=== PATIENT | female | born 1945 | race Caucasian/White ===

== ENCOUNTER 2017-02-17 10:20 | Day surgery (SDC) | payer MEDICARE, OTHER, MEDICAID ==
[2017-02-17] MEDS ORDERED: KETOROLAC 0.5% OPTH 60 DROP SOL ONE (10:26)
[2017-02-17] MEDS ORDERED: ACETAZOLAMIDE 500 MG CER ONE (10:26)
[2017-02-17] MEDS ORDERED: CYCLOPENTOLATE 1% SOL ONE (10:26)
[2017-02-17] MEDS ORDERED: PROPARACAINE HCL 0.5% OPHTHALMIC SOL ONE (10:26)
[2017-02-17] MEDS ORDERED: PHENYLEPHRINE HCL 10% OPHTHAL SOL ONE (10:26)
[2017-02-17] MEDS ORDERED: PHENYLEPHRINE HCL 10% OPHTHAL SOL RIGHTEYE ONE (10:52)
[2017-02-17] MEDS: PROPARACAINE HCL 0.5% OPHTHALMIC SOL RIGHTEYE ONE ×2 (10:52→11:34)
[2017-02-17] MEDS ORDERED: KETOROLAC 0.5% OPTH 60 DROP SOL RIGHTEYE ONE (10:52)
[2017-02-17] MEDS ORDERED: CYCLOPENTOLATE 1% SOL RIGHTEYE ONE (10:52)
[2017-02-17] MEDS ORDERED: MIDAZOLAM 2 MG/2 ML SOL ONE (11:11)
[2017-02-17] MEDS ORDERED: BSS 500 ML 500 ML IR ONE (11:27)
[2017-02-17] MEDS ORDERED: POVIDONE IODINE 5% SOL ONE (11:27)
[2017-02-17] MEDS ORDERED: LIDOCAINE HCL 1% MPF SOL ONE (11:27)
[2017-02-17] MEDS ORDERED: DEXTROSE 50% 1 VIAL SOL IV ONE ×2 (12:05→12:27)
[2017-02-17 13:12] VITALS: BP 132/69; PULSE 71; RESP 20; TEMP 97; O2SAT 95
== END 2017-02-17 13:25 | disposition home or self-care (01) | DRG 125 ==
LOC: SURG 10:20
PROVIDERS: ATTEND Ophthalmology
DX: H25.9 Unspecified age-related cataract (principal)
CPT/HCPCS: 82962; J2250; J2001

== ENCOUNTER 2017-05-25 12:26 | Emergency (ER) | payer MEDICARE, OTHER, MEDICAID ==
[2017-05-25] MEDS ORDERED: ALBUTEROL/IPRATROPIUM 1 VIAL SOL INH ONE (12:52)
[2017-05-25] MEDS ORDERED: ALBUTEROL/IPRATROPIUM 1 VIAL SOL ONE (12:54)
[2017-05-25 12:58] LABS: BASOPHILS % (AUTO) 1 % (0-3); EOSINOPHILS % (AUTO) 3 % (0-9); HEMATOCRIT 40 % (35-47); MEAN CORPUSCULAR HGB CONC 34.6 gm/dl (32.0-36.0); MEAN CORPUSCULAR VOLUME 87 fL (81-99); MONOCYTES % (AUTO) 10.7 % (0-12); NEUTROPHILS % (AUTO) 69.3 % (37-80)
[2017-05-25 13:07] LABS: CALCIUM 9.2 mg/dl (8.5-10.1); POTASSIUM 4.1 mMol/L (3.5-5.1)
[2017-05-25 13:43] VITALS: TEMP 100.4
[2017-05-25 14:38] VITALS: BP 155/91; PULSE 91; RESP 30; O2SAT 94
== END 2017-05-25 14:25 | disposition home or self-care (01) | DRG 192 ==
LOC: ED 12:26
DX: J44.1 Chronic obstructive pulmonary disease with (acute) exacerbation (principal); Z99.81 Dependence on supplemental oxygen
CPT/HCPCS: 71045; 80048; 83880; 85025; 87804; 93005; 99284; J7620; A9270-GY

== ENCOUNTER 2017-06-01 12:14 | Inpatient (IN) | payer MEDICARE, OTHER, MEDICAID ==
[2017-06-01 12:59] LABS: BASOPHILS % (AUTO) 1 % (0-3); EOSINOPHILS % (AUTO) 3 % (0-9); HEMATOCRIT 42 % (35-47); MEAN CORPUSCULAR HGB CONC 34.1 gm/dl (32.0-36.0); MEAN CORPUSCULAR VOLUME 89 fL (81-99); MONOCYTES % (AUTO) 7.4 % (0-12); NEUTROPHILS % (AUTO) 66.2 % (37-80)
[2017-06-01 13:15] LABS: ALBUMIN 2.9 gm/dl (3.4-5.0); ALT 27 IU/L (14-63); CALCIUM 9.4 mg/dl (8.5-10.1); GLOM FILT RATE 40 mL/min (>60); POTASSIUM 3.9 mMol/L (3.5-5.1); SODIUM 140 mMol/L (136-145)
[2017-06-01 13:50] LABS: HEMOGLOBIN A1C 7.8 % (4.8-6.0)
[2017-06-01 13:52] LABS: APPEARANCE,URINE Clear; BILIRUBIN,URINE NEGATIVE (NEGATIVE); COLOR,URINE Yellow; GLUCOSE, URINE (UA) NEGATIVE (NEGATIVE); KETONES,URINE NEGATIVE (NEGATIVE); LEUKOCYTE ESTERASE ,URINE NEGATIVE (NEGATIVE); NITRATE,URINE NEGATIVE (NEGATIVE); OCCULT BLOOD,URINE NEGATIVE (NEG-TRACE)
[2017-06-01 13:57] LABS: RBC,URINE 0-2 (0-3AV/HPF)
[2017-06-01] MEDS ORDERED: ALBUTEROL NEB SOL 2.5MG/3ML 1 VIAL SOL INH PRN (15:42)
[2017-06-01] MEDS ORDERED: OMEPRAZOLE 20 MG CAPSULE PO SCH (16:30)
[2017-06-01] MEDS ORDERED: NOVOLOG FLEXPEN SC SCH (16:30)
[2017-06-01] MEDS: HUMALOG PEN 100 U/ML SC SCH ×3 (17:52→21:22)
[2017-06-01] MEDS ORDERED: POTASSIUM CHLORIDE 2 MEQ/ML SOL IV ONE (18:16)
[2017-06-01] MEDS: SODIUM CHLORIDE 0.45% 1000 ML 1,000 ML with POTASSIUM CHLORIDE 2 MEQ/ML 20 MEQ IV SCH (18:23)
[2017-06-01] MEDS: SODIUM CHLORIDE 0.9% FLUSH 10 ML SOL IV SCH (18:25)
[2017-06-01] MEDS ORDERED: ASPIRIN EC 81 MG PO SCH (21:00)
[2017-06-01] MEDS ORDERED: MAGNESIUM OXIDE 400 MG TAB PO SCH (21:00)
[2017-06-01] MEDS ORDERED: ATORVASTATIN 10 MG TAB PO SCH (21:00)
[2017-06-01] MEDS ORDERED: PAROXETINE HYDROCHLORIDE 20 MG TAB PO SCH (21:00)
[2017-06-01] MEDS ORDERED: MELATONIN 3 MG TAB PO SCH (21:00)
[2017-06-01] MEDS ORDERED: ACETAMINOPHEN 325 MG PO PRN (21:11)
[2017-06-01] MEDS ORDERED: ASPIRIN 81 MG CHEWABLE CTB ONE (21:13)
[2017-06-01] MEDS: POTASSIUM CHLORIDE 10 MEQ TER PO SCH (21:16)
[2017-06-02 00:21] VITALS: O2SAT 96
[2017-06-02] MEDS: SODIUM CHLORIDE 0.9% FLUSH 10 ML SOL IV SCH ×2 (02:42→11:00)
[2017-06-02] MEDS ORDERED: POTASSIUM CHLORIDE 2 MEQ/ML SOL IV ONE (04:47)
[2017-06-02] MEDS: SODIUM CHLORIDE 0.45% 1000 ML 1,000 ML with POTASSIUM CHLORIDE 2 MEQ/ML 20 MEQ IV SCH (04:52)
[2017-06-02] MEDS: HUMALOG PEN 100 U/ML SC SCH ×4 (07:51→12:40)
[2017-06-02] MEDS: POTASSIUM CHLORIDE 10 MEQ TER PO SCH (08:41)
[2017-06-02] MEDS ORDERED: PANTOPRAZOLE SODIUM 40 MG ECT PO SCH (09:00)
[2017-06-02] MEDS ORDERED: LEVOFLOXACIN 500 MG TAB PO SCH ×2 (09:00→21:00)
[2017-06-02] MEDS ORDERED: ALLOPURINOL 100 MG TAB PO SCH (09:00)
[2017-06-02] MEDS ORDERED: LISINOPRIL 5 MG TAB PO SCH (09:00)
[2017-06-02] MEDS ORDERED: ENOXAPARIN 40 MG SOL SC SCH (09:00)
[2017-06-02] MEDS ORDERED: OLANZAPINE 2.5 MG TAB PO SCH (09:00)
[2017-06-02] MEDS ORDERED: METOLAZONE 2.5 MG TABLET PO SCH (09:00)
[2017-06-02] MEDS ORDERED: METOPROLOL SUCCINATE 50 MG ER TAB PO SCH (09:00)
[2017-06-02] MEDS ORDERED: FUROSEMIDE 40 MG TAB PO SCH (09:00)
[2017-06-02] MEDS ORDERED: INSULIN DEGLUDEC 200 UNIT/ML INSULN.PEN SQ SCH (09:00)
[2017-06-02 09:30] VITALS: BP 157/71; PULSE 78; RESP 24
[2017-06-02 09:34] VITALS: TEMP 97.9
== END 2017-06-02 12:20 | disposition home or self-care (01) | DRG 194 ==
LOC: ED 12:14 → ACUTE CARE 15:01 → UNDOADMIN 15:01 → ACUTE CARE 15:50
PROVIDERS: ADMIT Family Medicine; ATTEND Family Medicine
DX: J18.9 Pneumonia, unspecified organism (principal); J18.1 Lobar pneumonia, unspecified organism; J44.0 Chronic obstructive pulmonary disease with (acute) lower respiratory infection; E88.09 Other disorders of plasma-protein metabolism, not elsewhere classified; E11.649 Type 2 diabetes mellitus with hypoglycemia without coma; R06.02 Shortness of breath; R80.9 Proteinuria, unspecified; R55 Syncope and collapse; Z79.4 Long term (current) use of insulin; Z72.0 Tobacco use
CPT/HCPCS: 36415; 71046; 71275; 80053; 81001; 82962; 83036; 83880; 84484; 85025; 85378; 93005; 94150; 94664; 99285; J1650; J1815; J3480; J7613; Q9967; A9270; A9270-GY

== ENCOUNTER 2018-04-30 18:56 | Emergency (ER) | payer MEDICARE, OTHER ==
[2018-04-30] MEDS ORDERED: SOLUMEDROL 125 MG/2 ML 125 MG/2 ML PDS IV ONE (19:44)
[2018-04-30] MEDS ORDERED: MORPHINE SULFATE 10 MG/ML SOL IV ONE (19:44)
[2018-04-30] MEDS ORDERED: ALBUTEROL/IPRATROPIUM 1 VIAL SOL INH ONE (19:44)
[2018-04-30] MEDS ORDERED: FUROSEMIDE 100 MG SOL IV ONE (19:47)
[2018-04-30 19:52] VITALS: TEMP 98.9
[2018-04-30] MEDS ORDERED: MORPHINE SULFATE 10 MG/ML SOL ONE (19:55)
[2018-04-30] MEDS ORDERED: SOLUMEDROL 125 MG/2 ML 125 MG/2 ML PDS ONE (19:55)
[2018-04-30] MEDS ORDERED: ALBUTEROL/IPRATROPIUM 1 VIAL SOL ONE (19:56)
[2018-04-30] MEDS ORDERED: FUROSEMIDE 40 MG SOL ONE (19:56)
[2018-04-30] MEDS ORDERED: METOLAZONE 2.5 MG TABLET ONE (20:05)
[2018-04-30 20:27] LABS: BASOPHILS % (AUTO) 1 % (0-3); EOSINOPHILS % (AUTO) 5 % (0-9); HEMATOCRIT 42 % (35-47); HEMOGLOBIN 13.4 gm/dl (12.0-15.5); LYMPHOCYTES % (AUTO) 23.3 % (10-50); MEAN CORPUSCULAR HEMOGLOBIN 29.3 pg (27.0-32.0); MEAN CORPUSCULAR HGB CONC 32.2 gm/dl (32.0-36.0); MEAN CORPUSCULAR VOLUME 91 fL (81-99); NEUTROPHILS % (AUTO) 62.2 % (37-80)
[2018-04-30 20:43] LABS: BLOOD UREA NITROGEN 45 mg/dl (7-18); CALCIUM 8.8 mg/dl (8.5-10.1); CARBON DIOXIDE 27.5 mEq/L (21-32); CHLORIDE 95 mMol/L (98-107); CREATININE 1.81 mg/dl (0.60-1.00); GLUCOSE 288 mg/dl (74-106); POTASSIUM 3.8 mMol/L (3.5-5.1); SODIUM 134 mMol/L (136-145); TROP I < 0.017 ng/ml (0.000-0.056)
[2018-04-30 20:52] VITALS: RESP 20
[2018-04-30] MEDS ORDERED: PREDNISONE 20 MG TAB PO ONE (21:40)
[2018-04-30] MEDS ORDERED: AZITHROMYCIN 250 MG TAB PO ONE (21:40)
[2018-04-30] MEDS ORDERED: PREDNISONE 20 MG TAB ONE (21:42)
[2018-04-30] MEDS ORDERED: AZITHROMYCIN 250 MG TAB ONE (21:42)
[2018-04-30 21:53] VITALS: BP 123/68; PULSE 76; O2SAT 90
[2018-05-01] MEDS ORDERED: METOLAZONE 2.5 MG TAB PO SCH (07:00)
== END 2018-04-30 22:05 | disposition home or self-care (01) | DRG 192 ==
LOC: ED 18:56
DX: J44.1 Chronic obstructive pulmonary disease with (acute) exacerbation (principal); R06.02 Shortness of breath; I10 Essential (primary) hypertension
CPT/HCPCS: 71045; 80048; 83880; 84484; 85025; 93005; 96374; 96375; 99284; J1940; J2270; J2930; A9270-GY

== ENCOUNTER 2018-09-08 10:40 | Inpatient (IN) | payer MEDICARE, OTHER ==
[2018-09-08 11:25] LABS: CALCIUM 8.9 mg/dl (8.5-10.1); CREATININE 2.05 mg/dl (0.60-1.00)
[2018-09-08] MEDS ORDERED: APAP/HYDROCODONE 1 EACH TABLET PO PRN (12:27)
[2018-09-08] MEDS ORDERED: ALBUTEROL NEB SOL 2.5MG/3ML 1 VIAL SOL NEB PRN (12:27)
[2018-09-08] MEDS ORDERED: NITROGLYCERIN 0.4 MG TAB SL PRN (13:26)
[2018-09-08] MEDS ORDERED: GLUCAGON HYDROCHLORIDE 1 MG PDS IM PRN (13:26)
[2018-09-08] MEDS ORDERED: MORPHINE SULFATE 10 MG/ML SOL IV PRN ×2 (13:26)
[2018-09-08] MEDS ORDERED: ALUMINUM/MAGNESIUM 30 ML SUS PO PRN (13:26)
[2018-09-08] MEDS ORDERED: FUROSEMIDE 40 MG SOL IV SCH (15:30)
[2018-09-08] MEDS: SODIUM CHLORIDE 0.9% FLUSH 10 ML SOL IV SCH ×2 (15:43→22:10)
[2018-09-08] MEDS ORDERED: INSULIN HUMAN REGULAR U SC ONE (17:00)
[2018-09-08] MEDS ORDERED: [UNRECOGNIZED DRUG - OTHER] SC ONE (17:00)
[2018-09-08] MEDS ORDERED: INSULIN HUMAN REGULAR 100 U/ML SOL SC ONE (17:42)
[2018-09-08] MEDS ORDERED: INSULIN HUMAN REGULAR 100 U/ML SOL SC SCH (18:00)
[2018-09-08] MEDS: NOVOLOG FLEXPEN SC SCH ×2 (18:54→22:10)
[2018-09-08] MEDS: ASPIRIN EC 81 MG PO SCH (20:29)
[2018-09-08] MEDS: POTASSIUM CHLORIDE 10 MEQ TER PO SCH (20:30)
[2018-09-08] MEDS: ATORVASTATIN 10 MG TAB PO SCH (20:31)
[2018-09-08] MEDS: MAGNESIUM OXIDE 400 MG TAB PO SCH (20:32)
[2018-09-08] MEDS: MELATONIN 3 MG TAB PO SCH (20:32)
[2018-09-08] MEDS: PAROXETINE HYDROCHLORIDE 20 MG TAB PO SCH (20:33)
[2018-09-08] MEDS: ACETAMINOPHEN 325 MG PO PRN (21:35)
[2018-09-09] MEDS: ACETAMINOPHEN 325 MG PO PRN ×2 (06:05→23:34)
[2018-09-09] MEDS: SODIUM CHLORIDE 0.9% FLUSH 10 ML SOL IV SCH ×4 (06:05→16:04)
[2018-09-09 07:51] LABS: ALBUMIN 2.9 gm/dl (3.4-5.0); ALKALINE PHOSPHATASE 53 IU/L (46-116); ALT 37 IU/L (14-63); AST 22 IU/L (15-37); BILIRUBIN,TOTAL 0.8 mg/dl (0.2-1.0); BLOOD UREA NITROGEN 55 mg/dl (7-18); CALCIUM 8.9 mg/dl (8.5-10.1); CARBON DIOXIDE 31.6 mEq/L (21-32); CHLORIDE 97 mMol/L (98-107); CHOL/HDL RATIO 3.3 (2.2-4.5); CHOLESTEROL 122 mg/dl (120-200); CREATININE 2.09 mg/dl (0.60-1.00); GLUCOSE 117 mg/dl (74-106); HDL CHOLESTEROL 37 mg/dl (40-60); LDL/HDL RATIO 1.7 (1.1-3.1); POTASSIUM 4.1 mMol/L (3.5-5.1); SODIUM 135 mMol/L (136-145); TOTAL PROTEIN 6.8 gm/dl (6.4-8.2); TROP I < 0.017 ng/ml (0.000-0.056)
[2018-09-09] MEDS: NOVOLOG FLEXPEN SC SCH ×4 (08:07→21:40)
[2018-09-09] MEDS: FUROSEMIDE 40 MG SOL IV SCH ×2 (08:37→16:04)
[2018-09-09] MEDS: POTASSIUM CHLORIDE 10 MEQ TER PO SCH ×2 (08:37→20:50)
[2018-09-09] MEDS: ALLOPURINOL 100 MG TAB PO SCH (08:38)
[2018-09-09] MEDS: METOPROLOL SUCCINATE 50 MG ER TAB PO SCH (08:38)
[2018-09-09] MEDS: LISINOPRIL 5 MG TAB PO SCH (08:38)
[2018-09-09] MEDS: OLANZAPINE 2.5 MG TAB PO SCH (08:39)
[2018-09-09] MEDS: METOLAZONE 2.5 MG TABLET PO SCH (08:39)
[2018-09-09] MEDS ORDERED: INSULIN HUMAN REGULAR 100 U/ML SOL SC SCH (09:00)
[2018-09-09] MEDS ORDERED: PANTOPRAZOLE SODIUM 40 MG ECT PO PRN (09:00)
[2018-09-09] MEDS ORDERED: INSULIN HUMAN REGULAR U SC ONE (17:00)
[2018-09-09] MEDS ORDERED: [UNRECOGNIZED DRUG - OTHER] SC ONE (17:00)
[2018-09-09] MEDS: ASPIRIN EC 81 MG PO SCH (20:50)
[2018-09-09] MEDS: ATORVASTATIN 10 MG TAB PO SCH (20:51)
[2018-09-09] MEDS: MAGNESIUM OXIDE 400 MG TAB PO SCH (20:51)
[2018-09-09] MEDS: PAROXETINE HYDROCHLORIDE 20 MG TAB PO SCH (20:52)
[2018-09-09] MEDS: MELATONIN 3 MG TAB PO SCH (20:52)
[2018-09-10] MEDS: SODIUM CHLORIDE 0.9% FLUSH 10 ML SOL IV SCH ×3 (00:20→17:07)
[2018-09-10] MEDS: FUROSEMIDE 40 MG SOL IV SCH ×3 (00:20→16:55)
[2018-09-10 07:37] LABS: CALCIUM 9.5 mg/dl (8.5-10.1); CARBON DIOXIDE 34.5 mEq/L (21-32); CREATININE 1.93 mg/dl (0.60-1.00); POTASSIUM 4.2 mMol/L (3.5-5.1)
[2018-09-10] MEDS: NOVOLOG FLEXPEN SC SCH ×4 (08:27→20:34)
[2018-09-10] MEDS: CEPHALEXIN 250 MG/5 ML BOTTLE PO SCH ×3 (08:46→20:27)
[2018-09-10] MEDS: METOPROLOL SUCCINATE 50 MG ER TAB PO SCH (08:47)
[2018-09-10] MEDS: POTASSIUM CHLORIDE 10 MEQ TER PO SCH ×2 (08:47→20:13)
[2018-09-10] MEDS: ALLOPURINOL 100 MG TAB PO SCH (08:48)
[2018-09-10] MEDS: OLANZAPINE 2.5 MG TAB PO SCH (08:48)
[2018-09-10] MEDS: METOLAZONE 2.5 MG TABLET PO SCH (08:48)
[2018-09-10] MEDS: LISINOPRIL 5 MG TAB PO SCH (08:48)
[2018-09-10] MEDS: ACETAMINOPHEN 325 MG PO PRN ×2 (11:43→20:12)
[2018-09-10] MEDS: ATORVASTATIN 10 MG TAB PO SCH (20:13)
[2018-09-10] MEDS: MELATONIN 3 MG TAB PO SCH (20:14)
[2018-09-10] MEDS: MAGNESIUM OXIDE 400 MG TAB PO SCH (20:14)
[2018-09-10] MEDS: PAROXETINE HYDROCHLORIDE 20 MG TAB PO SCH (20:14)
[2018-09-10] MEDS: ASPIRIN EC 81 MG PO SCH (20:27)
[2018-09-11] MEDS: SODIUM CHLORIDE 0.9% FLUSH 10 ML SOL IV SCH ×3 (00:02→16:42)
[2018-09-11] MEDS: FUROSEMIDE 40 MG SOL IV SCH ×3 (00:02→16:42)
[2018-09-11] MEDS: CEPHALEXIN 250 MG/5 ML BOTTLE PO SCH ×4 (03:15→20:26)
[2018-09-11 07:21] LABS: CALCIUM 9.7 mg/dl (8.5-10.1); CARBON DIOXIDE 36.2 mEq/L (21-32); CREATININE 1.89 mg/dl (0.60-1.00); POTASSIUM 4.2 mMol/L (3.5-5.1)
[2018-09-11] MEDS: POTASSIUM CHLORIDE 10 MEQ TER PO SCH ×2 (08:14→20:28)
[2018-09-11] MEDS: METOPROLOL SUCCINATE 50 MG ER TAB PO SCH (08:14)
[2018-09-11] MEDS: METOLAZONE 2.5 MG TABLET PO SCH (08:14)
[2018-09-11] MEDS: OLANZAPINE 2.5 MG TAB PO SCH (08:15)
[2018-09-11] MEDS: ALLOPURINOL 100 MG TAB PO SCH (08:15)
[2018-09-11] MEDS: LISINOPRIL 5 MG TAB PO SCH (08:15)
[2018-09-11] MEDS: NOVOLOG FLEXPEN SC SCH ×4 (08:18→20:22)
[2018-09-11] MEDS: CLOTRIMAZOLE 1% CREAM TOP SCH ×2 (17:09→20:24)
[2018-09-11] MEDS: MELATONIN 3 MG TAB PO SCH (20:27)
[2018-09-11] MEDS: ATORVASTATIN 10 MG TAB PO SCH (20:27)
[2018-09-11] MEDS: MAGNESIUM OXIDE 400 MG TAB PO SCH (20:28)
[2018-09-11] MEDS: PAROXETINE HYDROCHLORIDE 20 MG TAB PO SCH (20:29)
[2018-09-11] MEDS: ASPIRIN EC 81 MG PO SCH (20:29)
[2018-09-12] MEDS: SODIUM CHLORIDE 0.9% FLUSH 10 ML SOL IV SCH ×2 (00:11→09:46)
[2018-09-12] MEDS: FUROSEMIDE 40 MG SOL IV SCH ×2 (00:11→09:57)
[2018-09-12] MEDS: ACETAMINOPHEN 325 MG PO PRN (00:31)
[2018-09-12] MEDS: CEPHALEXIN 250 MG/5 ML BOTTLE PO SCH ×2 (02:09→09:51)
[2018-09-12 08:41] VITALS: BP 135/67; TEMP 98.2
[2018-09-12] MEDS: NOVOLOG FLEXPEN SC SCH ×2 (09:39→12:08)
[2018-09-12] MEDS: METOLAZONE 2.5 MG TABLET PO SCH (09:45)
[2018-09-12] MEDS: CLOTRIMAZOLE 1% CREAM TOP SCH (09:46)
[2018-09-12] MEDS: METOPROLOL SUCCINATE 50 MG ER TAB PO SCH (09:46)
[2018-09-12] MEDS: POTASSIUM CHLORIDE 10 MEQ TER PO SCH (09:46)
[2018-09-12] MEDS: ALLOPURINOL 100 MG TAB PO SCH (09:47)
[2018-09-12] MEDS: LISINOPRIL 5 MG TAB PO SCH (09:47)
[2018-09-12] MEDS: OLANZAPINE 2.5 MG TAB PO SCH (09:47)
[2018-09-12 10:28] VITALS: PULSE 85; RESP 20; O2SAT 92
== END 2018-09-12 13:05 | disposition home or self-care (01) | DRG 292 ==
LOC: ED 10:40 → UNDOADMIN 12:19 → ACUTE CARE 12:19
PROVIDERS: ADMIT Family Medicine; ATTEND Family Medicine
DX: I50.9 Heart failure, unspecified (principal); E11.9 Type 2 diabetes mellitus without complications; I50.41 Acute combined systolic (congestive) and diastolic (congestive) heart failure; L03.211 Cellulitis of face; L02.01 Cutaneous abscess of face; R06.02 Shortness of breath; J44.9 Chronic obstructive pulmonary disease, unspecified; Z79.4 Long term (current) use of insulin; E11.22 Type 2 diabetes mellitus with diabetic chronic kidney disease; N18.3 Chronic kidney disease, stage 3 (moderate)
CPT/HCPCS: 36415; 71045; 71046; 80048; 80053; 80061; 82962; 83880; 84484; 93005; 93306; 94150; 99283; 99284; J1610; J1815; J1940; A9270-GY